=== PATIENT | female | born 1980 | race Caucasian/White ===

== ENCOUNTER 2020-11-29 14:11 | Emergency (ER) | payer OTHER, SELFPAY ==
[2020-11-29 14:14] VITALS: BP 138/89; PULSE 79; RESP 18; TEMP 36.4; O2SAT 97
[2020-11-29] MEDS: LORazepam (*CRX) 1 MG TABLET PO (14:35)
[2020-11-29 15:01] LABS: Basophils Absolute Auto 0.1 K/mm3 (0.0-0.1); Eosinophils Absolute Auto 0.1 K/mm3 (0-0.3); Eosinophils Percent Auto 2.3 % (0-4.4); Hemoglobin 13.5 g/dL (12.0-15.0); Immature Granulocyte Absolute 0.02 K/mm3 (0.00-0.031); Immature Granulocyte Percent A 0.3 % (0-0.5); Lymphocytes Absolute Auto 1.38 K/mm3 (0.9-3.2); Mean Corpuscular HGB Conc 33.8 g/dl (32-36); Mean Corpuscular Hemoglobin 30.8 pg (26-34); Mean Corpuscular Volume 91.1 fl (80-100); Monocytes Absolute Auto 0.5 K/mm3 (0.1-0.6); Monocytes Percent Auto 8.9 % (2.6-8.5); Neutrophils Absolute Auto 3.7 K/mm3 (1.3-6.7); Neutrophils Percent Auto 63.5 % (45.5-73.1); Platelet Count Result 282 k/mm3 (150-375); Red Blood Count 4.39 M/mm3 (4.2-5.4); Red Cell Distribution Width 13.3 % (11.5-14.5); White Blood Count 5.8 K/mm3 (4.5-10.0)
[2020-11-29 15:12] LABS: Anion Gap 6 mmol/L (8-16); Blood Urea Nitrogen 8 mg/dL (7-17); Calcium 8.6 mg/dL (8.4-10.2); Carbon Dioxide 25 mmol/L (22-30); Chloride 107 mmol/L (98-107); Estimated CRCL calculation 102 ml/min; Estimated Glomerular Filt Rate > 60; Glucose 101 mg/dL (65-105); Potassium 4.1 mmol/L (3.4-5.0); Sodium 138 mmol/L (137-145)
[2020-11-29 15:14] LABS: Add Urine Microscopic? YES; Appearance Urine Cloudy (Clear); Bacteria Urine Trace /hpf; Bilirubin Urine Negative (Negative); Blood Urine Negative (Negative); Color Urine Yellow (Yellow); Glucose Urine UA Negative (Negative); Ketones Urine 2+ mg/dL (Negative); Leukocyte Esterase Ur Negative LEU/UL (Negative); Mucus Urine Heavy /lpf; Nitrate Urine Negative (Negative); Protein Urine 2+ mg/dL (Negative); RBC Urine 21-50 /hpf (0-2); Specific Grav Ur 1.027 (1.001-1.035); Squamous Epithelial Cell Urine Many /hpf (Few); Urobilinogen Urine Negative mg/dL (<2.0); WBC Urine 0-3 /hpf
[2020-11-29 15:49] LABS: Barbiturate Screen Urine Negative (Negative); Benzodiazepines Screen Urine Negative (Negative)
[2020-11-29 15:53] LABS: Amphetamine Screen Urine Negative (Negative); Cannabinoid Screen Urine Positive (Negative); Cocaine Screen Urine Negative (Negative); Methadone Screen Urine Negative (Negative); Opiate Screen Urine Negative (Negative); Phencyclidine Screen Urine Negative (Negative)
--- NOTE | 2020-11-29 16:00 | ED.ANXIETY ---
HPI - Anxiety General Chief Complaint: Anxiety Stated Complaint: I cant feel my legs or arms . Chest pain Time Seen by Provider: 11/29/20 14:18 Source: patient Mode of arrival: ambulatory Limitations: no limitations History of Present Illness HPI narrative: 39-year-old with a history of anxiety and depression here with complaints of lower extremity numbness and tingling sensation since this morning. Patient states that she is on Lamictal and Klonopin which she has not taken this morning was at work started having the symptoms again her friend gave her half a tablet of Xanax which eased her for little bit however she still continues to feel tingly all over. She denies any headache or chest pain. complaint: anxiety Severity: moderate Quality: constant Place: home History of similar episodes: Yes Provoking factors: none known Relieving factors: nothing Exacerbating factors: nothing Associated symptoms: denies other symptoms Related Data Allergies Allergy/AdvReac Type Severity Reaction Status Date / Time No Known Allergies Allergy Verified 11/29/20 14:17 Review of Systems Review of Systems: All systems reviewed & are unremarkable except as noted in HPI and below Constitutional: Constitutional: Reports no additional constitutional complaints ENT: Reports system reviewed and no additional complaints, except as documented Cardiovascular: Cardiovascular: Reports no additional cardiovascular complaints Respiratory: Respiratory: Reports no additional respiratory complaints Gastrointestinal: Gastrointestinal: Reports no additional gastrointestinal complaints Musculoskeletal: Musculoskeletal: Reports no additional musculoskeletal complaints Neurologic: Reports system reviewed and no additional complaints, except as documented PMFSH Social History Social History Smoking status: Never smoker Alcohol intake: never Exam Narrative: Exam Narrative: GENERAL: Well-appearing, well-nourished, and in no acute distress. HEAD: Normocephalic, atraumatic. EYES: PERRLA and EOMI. NECK: Supple. CHEST: Clear to auscultation. No respiratory distress. HEART: Regular rate and rhythm. No murmur heard. Normal peripheral pulses. ABDOMEN: Soft, nontender, nondistended, normal active bowel sounds. EXTREMITIES: Normal range of motion. No edema. SKIN: Warm, dry, no rash. NEURO: No focal deficits. Alert and oriented x3. PSYCH: Normal mood and affect. Course Course Emergency Course: Patient did receive 1 mg of Ativan while she was here in the ER. I discussed labs including urinalysis patient states that she has IUD occasionally she has mild intermittent spotting which explains blood in the urine I advised her to follow-up with her primary doctor and continue home medication. Vital Signs Vital signs: Vital Signs Temperature 36.4 C L 11/29/20 14:14 Pulse Rate 79 11/29/20 14:14 Respiratory Rate 18 11/29/20 14:14 Blood Pressure 138/89 11/29/20 14:14 Pulse Oximetry 97 11/29/20 14:14 Temperature 36.4 C L 11/29/20 14:14 Pulse Rate 79 11/29/20 14:14 Respiratory Rate 18 11/29/20 14:14 Blood Pressure 138/89 11/29/20 14:14 Pulse Oximetry 97 11/29/20 14:14 MDM - Anxiety MDM Narrative Medical decision making narrative: Given history of anxiety I will give her a milligram of Ativan p.o. meanwhile do CBC and chemistry . Lab Data Result diagrams: 11/29/20 14:52 11/29/20 14:53 Labs: Lab Results 11/29/20 11/29/20 11/29/20 Range/Units 14:52 14:53 14:58 WBC 5.8 (4.5-10.0) K/mm3 RBC 4.39 (4.2-5.4) M/mm3 Hgb 13.5 (12.0-15.0) g/dL Hct 40.0 (37.0-47.0) % MCV 91.1 (80-100) fl MCH 30.8 (26-34) pg MCHC 33.8 (32-36) g/dl RDW 13.3 (11.5-14.5) % Plt Count 282 (150-375) k/mm3 MPV 10.0 (7.4-10.4) fl Immature Gran % (Auto) 0.3 (0-0.5) % Neut % (Auto) 63.5 (45.5-73.1) % Lymp
[2020-11-29 16:16] VITALS: BP 135/70; PULSE 80; RESP 12; O2SAT 99
== END 2020-11-29 16:17 | disposition home or self-care (01) ==
PROVIDERS: Emergency Provider Family Medicine
DX: F41.9 Anxiety disorder, unspecified (principal); F32.9 Major depressive disorder, single episode, unspecified; Z97.5 Presence of (intrauterine) contraceptive device
CPT/HCPCS: 36415; 80048; 80307; 81001; 85025; 99283; A9270

== ENCOUNTER 2021-09-15 15:04 | Outpatient (CLI) | payer OTHER, SELFPAY ==
--- NOTE | ~2021-09-15 | US_ITS ---
EXAMINATION: US soft tissue head and neck DATE: 09/15/2021 15:30 INDICATION: Swelling/lump at the posterior base of the neck TECHNIQUE: Multiple grayscale and Doppler ultrasound images of the region of concern at the posterior base of the neck were obtained. COMPARISON: None FINDINGS: Shadowing spinous processes can be seen underlying the normal-appearing subcutaneous fat at the regio n of concern. No abnormal masses or fluid collections identified. IMPRESSION: 1. No abnormal masses or fluid collections identified at the region of concern at the posterior base of the neck. Reviewed, dictated and finalized at location A. 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
== END 2021-09-15 15:05 | disposition home or self-care (01) ==
LOC: ANHIMG 15:08
DX: R22.1 Localized swelling, mass and lump, neck (principal)
CPT/HCPCS: 76536

== ENCOUNTER 2021-10-29 00:12 | Emergency (ER) | payer OTHER, SELFPAY ==
--- NOTE | ~2021-10-29 | XR_ITS ---
EXAMINATION: XR chest 1V portable DATE: 10/29/2021 00:24 INDICATION: Chest pain TECHNIQUE: frontal view of the chest was obtained. COMPARISON: Chest radiograph dated 05/17/2018 FINDINGS: The lungs remain clear with no focal airspace opacities, pulmonary edema, pleural effusion or pneumot horax. The cardiomediastinal silhouette is normal. Visualized bones and soft tissues are unremarkable . IMPRESSION: 1. No acute cardiopulmonary disease. Reviewed, dictated and finalized at location A. 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
[2021-10-29 00:10] VITALS: BP 121/69; PULSE 67; RESP 15; TEMP 36.7; O2SAT 99
--- NOTE | 2021-10-29 00:14 | ECG_ITS ---
Measurements Intervals [place] Rate: 62 P: 2 GA: 137 QRS: 52 QRSD: 102 T: 50 QT: 396 QTc: 404 Interpretive Statements SINUS RHYTHM INCOMPLETE RIGHT BUNDLE BRANCH BLOCK BASELINE ARTIFACT- I, II, III, AVR, AVL, AVF, V1, V3-V6 BORDERLINE ECG Electronically Signed On 10-29-2021 6:27:23 HOSTLER HELPER by Mani Schilling D.O.
[2021-10-29 00:16] VITALS: PULSE 64
[2021-10-29 00:31] LABS: Basophils Absolute Auto 0.1 K/mm3 (0.0-0.1); Basophils Percent Auto 0.8 % (0.2-1.2); Eosinophils Absolute Auto 0.2 K/mm3 (0-0.3); Eosinophils Percent Auto 2.3 % (0-4.4); Hematocrit 39.9 % (37.0-47.0); Hemoglobin 13.1 g/dL (12.0-15.0); Immature Granulocyte Absolute 0.02 K/mm3 (0.00-0.031); Immature Granulocyte Percent A 0.2 % (0-0.5); Lymphocytes Absolute Auto 2.81 K/mm3 (0.9-3.2); Lymphocytes Percent Auto 26.5 % (18.3-44.2); Mean Corpuscular HGB Conc 32.8 g/dl (32-36); Mean Corpuscular Hemoglobin 31.2 pg (26-34); Mean Platelet Volume 10.7 fl (7.4-10.4); Monocytes Absolute Auto 0.7 K/mm3 (0.1-0.6); Neutrophils Absolute Auto 6.7 K/mm3 (1.3-6.7); Neutrophils Percent Auto 63.2 % (45.5-73.1); Platelet Count Result 251 k/mm3 (150-375); Red Cell Distribution Width 12.9 % (11.5-14.5); White Blood Count 10.6 K/mm3 (4.5-10.0)
[2021-10-29 00:41] LABS: INR 0.9
[2021-10-29 00:42] LABS: Alanine Aminotransferase 12 U/L (4-35); Albumin Level 4.1 g/dL (3.5-5.1); Alkaline Phosphatase 54 U/L (38-126); Anion Gap 5 mmol/L (8-16); Aspartate Amino Transferase 20 U/L (14-36); Bilirubin,Total 0.2 mg/dL (0.2-1.3); Blood Urea Nitrogen 10 mg/dL (7-17); Calcium 8.7 mg/dL (8.4-10.2); Carbon Dioxide 24 mmol/L (22-30); Chloride 109 mmol/L (98-107); Estimated CRCL calculation 115 ml/min; Estimated Glomerular Filt Rate > 60; Glucose 153 mg/dL (65-110); Sodium 138 mmol/L (137-145)
[2021-10-29 00:53] LABS: Troponin I < 0.012 ng/mL (0.000-0.034)
--- NOTE | 2021-10-29 01:41 | ED.CHESTPAIN ---
HPI - Chest Pain General Chief Complaint: Chest Pain Stated Complaint: chest pain Time Seen by Provider: 10/29/21 00:14 Source: patient Mode of arrival: EMS Limitations: no limitations History of Present Illness HPI narrative: 40-year-old with a history of back problems here with complaints of midsternal chest pain radiating into her back. Patient states the pain woke her up from deep sleep. She states of her past few days she has been having back pain and she has been taking baclofen. She denied any shortness of breath, nausea or vomiting. Patient denies any gallbladder problems. MD complaint: chest pain Timing of current episode: now resolved Prior episodes: No Onset: during rest Pain location: epigastric Pain radiation: back Severity: moderate Quality: aching Relieving factors: nothing Exacerbating factors: nothing Related Data Home Medications Medication Instructions Recorded Confirmed clonazepam 0.5 mg PO TID 10/06/19 10/06/19 lamotrigine 300 mg PO DAILY 10/06/19 10/06/19 Allergies Allergy/AdvReac Type Severity Reaction Status Date / Time codeine Allergy Nausea Verified 10/29/21 00:15 Review of Systems Review of Systems: All systems reviewed & are unremarkable except as noted in HPI and below Constitutional: Constitutional: Reports no additional constitutional complaints Eyes: Eyes: Reports no additional eye complaints ENT: Reports system reviewed and no additional complaints, except as documented Cardiovascular: Cardiovascular: Reports no additional cardiovascular complaints Respiratory: Respiratory: Reports no additional respiratory complaints Gastrointestinal: Gastrointestinal: Reports no additional gastrointestinal complaints Musculoskeletal: Musculoskeletal: Reports no additional musculoskeletal complaints Neurologic: Reports system reviewed and no additional complaints, except as documented PMFSH Social History Social History Smoking status: Never smoker Second hand tobacco smoke exposure: Yes Alcohol intake: never Exam Narrative: GENERAL: Well-appearing, well-nourished, and in no acute distress. HEAD: Normocephalic, atraumatic. EYES: PERRLA and EOMI NECK: Supple. CHEST: Clear to auscultation. No respiratory distress. HEART: Regular rate and rhythm. No murmur heard. Normal peripheral pulses. ABDOMEN: Soft, nontender, nondistended, normal active bowel sounds. EXTREMITIES: Normal range of motion. No edema. SKIN: Warm, dry, no rash. NEURO: No focal deficits. Alert and oriented x3. PSYCH: Normal mood and affect. Course Course Emergency Course: Patient comfortably sitting on the stretcher in no discomfort talking with her mother she states that she is feeling great I did inform her about her EKG, chest x-ray and lab work. She feels comfortable going home. Vital Signs Vital signs: Vital Signs Temperature 36.7 C 10/29/21 00:10 Pulse Rate 67 10/29/21 00:10 Respiratory Rate 15 10/29/21 00:10 Blood Pressure 121/69 10/29/21 00:10 Pulse Oximetry 99 10/29/21 00:10 Temperature 36.7 C 10/29/21 00:10 Pulse Rate 64 10/29/21 00:16 Respiratory Rate 15 10/29/21 00:10 Blood Pressure 121/69 10/29/21 00:10 Pulse Oximetry 99 10/29/21 00:10 MDM - Chest Pain Lab Data Result diagrams: 10/29/21 00:18 10/29/21 00:18 Labs: Lab Results 10/29/21 10/29/21 10/29/21 Range/Units 00:18 00:18 00:18 WBC 10.6 H (4.5-10.0) K/mm3 RBC 4.20 (4.2-5.4) M/mm3 Hgb 13.1 (12.0-15.0) g/dL Hct 39.9 (37.0-47.0) % MCV 95.0 (80-100) fl MCH 31.2 (26-34) pg MCHC 32.8 (32-36) g/dl RDW 12.9 (11.5-14.5) % Plt Count 251 (150-375) k/mm3 MPV 10.7 H (7.4-10.4) fl Immature Gran % (Auto) 0.2 (0-0.5) % Neut % (Auto) 63.2 (45.5-73.1) % Lymph % (Auto) 26.5 (18.3-44.2) % [place] % (Auto) 7.0 (2.6-8.5) % Eos % (Auto) 2.3 (0-4.4)
[2021-10-29 02:13] VITALS: BP 117/62; PULSE 72; RESP 16; O2SAT 98
== END 2021-10-29 02:15 | disposition home or self-care (01) ==
PROVIDERS: Emergency Provider Family Medicine
DX: R07.89 Other chest pain (principal)
CPT/HCPCS: 36415; 71045; 80053; 84484; 85025; 85610; 93005; 99284

== ENCOUNTER 2022-02-16 19:45 | Emergency (ER) | payer OTHER, SELFPAY ==
[2022-02-16 19:51] VITALS: BP 111/73; PULSE 104; RESP 20; TEMP 36.7; O2SAT 98
--- NOTE | 2022-02-16 20:37 | PC.NURSE ---
Pt walks out aox3 when pt checked in she stated if the wait was too long she was going to go to a different hospital.
== END 2022-02-16 21:05 | disposition left against medical advice (07) ==
DX: Z53.21 Procedure and treatment not carried out due to patient leaving prior to being seen by health care provider (principal)
CPT/HCPCS: 99199

== ENCOUNTER 2022-02-17 13:57 | Emergency (ER) | payer OTHER, SELFPAY ==
[2022-02-17 14:09] VITALS: BP 128/67; PULSE 95; RESP 16; TEMP 36.9; O2SAT 100
--- NOTE | 2022-02-17 14:11 | PC.NURSE ---
pt upset that we dont have any beds open. when mother informed that she would have to wait outside until pt taken back to a room pt states lets go to [facility], they have more beds
== END 2022-02-17 14:11 | disposition left against medical advice (07) ==
DX: R51.9 Headache, unspecified (principal)
CPT/HCPCS: 99199

== ENCOUNTER 2022-04-16 17:49 | Outpatient (CLI) | payer OTHER, SELFPAY ==
--- NOTE | ~2022-04-16 | CT_ITS ---
EXAMINATION: CT abdomen pelvis wo con DATE: 04/16/2022 18:18 INDICATION: History of left-sided kidney stones. TECHNIQUE: Computed tomography (CT) of the abdomen and pelvis was performed without intravenous contr ast. The dose-length product was 218.51 mGy-cm. Automated exposure control and iterative reconstructi on technique were employed. COMPARISON: CT dated 03/27/2017. FINDINGS: Possible 1.8 cm right breast mass, image 1. Heart size normal. Lung bases unremarkable. No significant pleural or pericardial effusion. No significant vascular abnormality. No lymphadenopathy. There is an IUD in the uterus. Containing umbilical hernia. The liver, spleen, pancreas, adrenal glands are unremarkable. There are punctate nonobstructing bilat eral renal stones. There are pelvic phleboliths. Bladder is decompressed. No hydronephrosis. Gallblad casey is present. Nonobstructive bowel pattern. No abnormal pelvic masses or fluid collections. No free air or free fluid. IMPRESSION: 1. Punctate nonobstructing bilateral nephrolithiasis. 2: Possible right breast mass measuring 1.8 cm, partially visualized on image 1. Correlation with josi gnostic bilateral mammogram and possible additional ultrasound recommended. Reviewed, dictated and finalized at location A. IMPRESSION: 1. Punctate nonobstructing bilateral nephrolithiasis. 2: Possible right breast mass measuring 1.8 cm, partially visualized on image 1 . Correlation with diagnostic bilateral mammogram and possible additional ultra sound recommended.
== END 2022-04-16 17:50 | disposition home or self-care (01) ==
DX: N20.0 Calculus of kidney (principal); R92.8 Other abnormal and inconclusive findings on diagnostic imaging of breast
CPT/HCPCS: 74176

== ENCOUNTER 2022-05-20 12:56 | Outpatient (CLI) | payer OTHER, SELFPAY ==
--- NOTE | ~2022-05-20 | MM_ITS ---
EXAMINATION: MM diagnostic abiodun BI w estrella HISTORY: Possible right breast mass on CT TECHNIQUE: Craniocaudal, mediolateral, and mediolateral oblique 3-D tomosynthesis images of the breas ts were performed and synthetic 2-D images were generated. CAD analysis was submitted and interpreted . COMPARISON: 10/18/2017 BREAST PARENCHYMAL COMPOSITION: The breasts are heterogeneously dense, which may obscure small masses . FINDINGS: There is no suspicious mass, calcification, or architectural distortion in either breast t o suggest malignancy. There has been no suspicious interval change. No mammographic correlate is yanely ntified for the right breast mass questioned on CT. IMPRESSION: 1. No mammographic evidence of malignancy. 2. Recommend routine screening mammography in one year. BI-RADS Category 1: Negative Reviewed, dictated and finalized at location A.
== END 2022-05-20 12:57 | disposition home or self-care (01) ==
PROVIDERS: Visit Provider Obstetrics & Gynecology
DX: N63.10 Unspecified lump in the right breast, unspecified quadrant (principal)
CPT/HCPCS: 77061; 77062; 77065; 77066; G0279

== ENCOUNTER 2022-06-10 15:49 | Emergency (ER) | payer OTHER, SELFPAY ==
[2022-06-10] VITALS (15 sets, daily range): BP systolic 123–142; BP diastolic 80–118; PULSE 84–119; RESP 12–26; O2SAT 90–99
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
[2022-06-10] MEDS: LORazepam (*CRX) 0.5 MG TABLET PO (16:54)
--- NOTE | 2022-06-10 17:03 | PC.NURSE ---
pt. showered off in decon shower and pt had 1L NS bilat rinse through lissy lens in each eye.
== END 2022-06-10 17:20 | disposition home or self-care (01) ==
PROVIDERS: Emergency Provider Emergency Medicine
DX: T52.0X Toxic effects of petroleum products (principal); H57.13 Ocular pain, bilateral
CPT/HCPCS: 99283; A9270; J7030

== ENCOUNTER 2023-08-10 14:42 | Outpatient (CLI) | payer OTHER, SELFPAY ==
--- NOTE | 2023-08-10 | ECG_ITS ---
Measurements Intervals [place] Rate: 63 P: 5 MN: 149 QRS: 62 QRSD: 101 T: 45 QT: 371 QTc: 382 Interpretive Statements SINUS RHYTHM INCOMPLETE RIGHT BUNDLE BRANCH BLOCK BORDERLINE ECG COMPARED TO ECG 10/29/2021 00:17:33 NO SIGNIFICANT CHANGES Electronically Signed On 08-10-2023 20:07:05 CHIEF CHEMIST by Mani Schilling D.O.
== END 2023-08-10 14:43 | disposition home or self-care (01) ==
LOC: ANHCARD 14:56
PROVIDERS: PCP Physician Assistant; Visit Provider Physician Assistant
DX: Z01.818 Encounter for other preprocedural examination (principal); I45.10 Unspecified right bundle-branch block
CPT/HCPCS: 93005

== ENCOUNTER 2024-07-03 14:00 | Outpatient (CLI) | payer OTHER, SELFPAY ==
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
== END 2024-07-03 14:01 | disposition home or self-care (01) ==
LOC: ANHIMG 14:10
PROVIDERS: PCP Physician Assistant; Visit Provider Physician Assistant
DX: M48.54XA Collapsed vertebra, not elsewhere classified, thoracic region, initial encounter for fracture (principal); T14.90XA Injury, unspecified, initial encounter
CPT/HCPCS: 71046; 72070; 73660

== ENCOUNTER 2024-10-15 10:30 | Outpatient (CLI) | payer OTHER, SELFPAY ==
--- NOTE | ~2024-10-15 | MM_ITS ---
EXAMINATION: MM screening abiodun BI w estrella HISTORY: Screening TECHNIQUE: Craniocaudal and mediolateral oblique 3-D tomosynthesis images were obtained and synthetic 2-D images were generated. CAD analysis was submitted and interpreted. COMPARISON: Comparison to multiple prior studies sequentially, with oldest reviewed study dated 10/18. BREAST PARENCHYMAL COMPOSITION: Dense: The breasts are heterogeneously dense, which may obscure small masses FINDINGS: There is no evidence of suspicious mass, calcification, or architectural distortion to sugg est malignancy in either breast. There has been no suspicious interval change. IMPRESSION: 1. No mammographic evidence of malignancy. 2. Recommend routine screening mammography in one year. BI-RADS Category 1: Negative Reviewed, dictated and finalized at location A. 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
== END 2024-10-15 10:31 | disposition home or self-care (01) ==
LOC: ANHIMG 10:32
PROVIDERS: PCP Physician Assistant; Visit Provider Obstetrics & Gynecology
DX: Z12.31 Encounter for screening mammogram for malignant neoplasm of breast (principal)
CPT/HCPCS: 77063; 77067

== ENCOUNTER 2025-08-08 12:51 | Outpatient (CLI) | payer OTHER, SELFPAY ==
--- NOTE | ~2025-08-08 | XR_ITS ---
EXAMINATION: XR hand RT 2V, 08/08/2025 13:00 IRRIGATION INSTALLATION SPECIALIST HISTORY: BILAT NON TRAUMA PAIN TO ALL FINGERS COMPARISON: No comparisons available. Findings: No acute fracture or malalignment. Moderate degenerative changes of the fifth proximal interphalangeal joint Soft tissues unremarkable. Impression: No acute fracture or malalignment. Reviewed, dictated and finalized at location P. GATION INSTALLATION SPECIALIST Impression: No acute fracture or malalignment.
--- NOTE | ~2025-08-08 | XR_ITS ---
EXAMINATION: XR hand LT 2V, 08/08/2025 13:00 CIVIL MANAGER HISTORY: BILATERAL NO TRAUMA PAIN TO ALL FINGERS FOR SEVERAL MONTHS COMPARISON: No comparisons available. Findings: No acute fracture or malalignment. Moderate degenerative changes of the fifth proximal interphalangeal joint Soft tissues unremarkable. Impression: No acute fracture or malalignment. Reviewed, dictated and finalized at location P. L MANAGER Impression: No acute fracture or malalignment.
--- OUTSIDE RECORDS SUMMARY | 2025-08-08 15:21 | XMS_ITS | Clinical Summary ---
Author Organization [facility] Address [facility] [place] [address] Care Team Providers Care Chair Name Role Phone Nilda Choe PA-C Primary Care Provider [phone] Allergies Active Allergy Reactions Criticality Noted Date Comments Codeine Nausea and Vomiting 11/07/2012 Medications clonazePAM 0.5 MG tablet Take 1 tablet by mouth 3 (three) times daily as needed. 07/12/2019 Active lamotrigine 100 MG tablet Take 300 mg by mouth daily. 3 06/21/2019 Active zolpidem 10 MG tablet Take 1 tablet by mouth nightly as needed. 07/12/2019 Active ibuprofen 800 MG tabletIndicatio ns:Headache Take 1 tablet (800 mg total) by mouth 3 (three) times daily as needed for Pain. 60 tablet 09/17/2019 Active baclofen 20 MG tabletIndicatio ns:prn pt not sure of mg Take 1 tablet (20 mg total) by mouth daily. Indications: prn pt not sure of mg 30 tablet 2 02/05/2020 Active traZODone 100 MG tablet Take 100 mg by mouth nightly as needed. 12/29/2021 Active valACYclovir 1 g tablet Take 1,000 mg by mouth daily. 01/14/2022 Active butalbital-acet aminophen-caffe ine 50-300-40 MG capsule Take 1 capsule by mouth every 6 (six) hours as needed for Headaches. 5 capsule 02/22/2022 Active HYDROcodone-tanna taminophen 5-325 MG tabletIndicatio ns:Acute Pain < 3 Day Supply Take 1 tablet by mouth every 6 (six) hours as needed for Pain. Indications: Acute Pain < 3 Day Supply 5 tablet 02/22/2022 Active cefdinir 300 MG Cap capsule Take 1 capsule (300 mg total) by mouth 2 (two) times daily. Start evening dose on 02/22/22 15 capsule 02/22/2022 Active Active Problems Problem Noted Date Diagnosed Date Ureteral stone 02/18/2022 Pyelonephritis 02/17/2022 Epidermal inclusion cyst 10/15/2021 Neoplasm of uncertain behavior of skin 2 Multiple benign nevi of uppe r extremity, lower extremity, and trunk 01/31/2020 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 Acrochordon 01/31/2020 Seborrheic keratosis 01/31/2020 Anxiety 01/10/2020 Actinic keratosis 11/15/2019 Atypical mole 11/15/2019 BMI 28.0-28.9,adult 08/07/2019 Shoulder pain, bilateral 07/19/2019 Numbness and tingling 07/19/2019 Pain in both hands 07/19/2019 Bipolar 1 disorder 10/20/2012 Viral hepatitis C 10/20/2012 Immunizations Immunization Administration Dates Next Due Fluzone Adult - >Age 3 (Pref illed Syringe) 01/08/2020(Deferred: Other - not sure if she wants it today) Family History Medical History Relation Comments Diabetes Maternal Aunt Diabetes Maternal Grandmother None Mother skin cancer Mother Relation Status Comments Father Alive Maternal Aunt Maternal Grandmother Mother Alive Social History Tobacco Use Types Packs/Day Years Used Date Smoking Tobacco: Never Smokeless Tobacco: Never Tobacco Cessation:Counseling Given: No Alcohol Use Standard Drinks/Week Comments No 0 (1 standard drink = 0.6 oz pur e alcohol) AUDIT-C Answer Date Recorded Frequency of Alcohol Consumption Never 07/19/2019 Average Number of Drinks Not on file 019 Frequency of Binge Drinking Not on file 06/21 PHQ-2 Answer Date Recorded PHQ-2 Score 3 11/15/2019 Education Answer Date Recorded What is the highest level of school you have completed or the highest degree you have received? Some college, no degree 07/19/2019 Comments No Sex and Gender Information Value Date Recorded Sex Assigned at Female 02/18/2022 3:07 AM CDT Legal Sex Female 8:16 PM CDT Gender Identity Female 02/18/2022 3:07 AM CDT Sexual Orientation Straight 02/18/2022 3: 07 AM CDT Last Filed Vital Signs Vital Sign Reading Time Taken Comments Blood Pressure 125/78 02/22/2022 8:57 AM CDT Pulse 63 02/22/2022 8:57 AM CDT Temperature 36.8 C (98.2 F) 02/22/2022 8:57 AM CDT Respiratory Rate 18 02/22/2022 8:57 AM CDT Oxygen Saturation 98% 02/22/2022 8:57 AM CDT Inhaled Oxygen Concentration - - Weight 89.5 kg (197 lb 5 oz) 02/22/2022 7:56 AM CDT Height 170.2 cm (5' 7) 02/22/2022 7:56 AM CDT Body Mass Index 30.9 02/22/2022 7:56 AM CDT Plan of Treatment Health Maintenance Due Date Last Done Comments Cervical Cancer Screening Pa p Smear (Age 30 to 64) Every 3 Years 1982 Annual Physical 1985 DTaP, Tdap and Td Vaccines ( 1 - Tdap) 2001 Hepatitis A Vaccines (1 of 2 - Risk 2-dose series) 2001 Hepatitis B Vaccines (1 of 3 - 19+ 3-dose series) 2001 Cervical Cancer Screening Pa p with HPV Testing (Age 30 to 64) Every 5 Years 2012 Cervical Cancer Screening wi th HPV 2012 Mammogram Screening 2022 COVID-19 Vaccine (3 - 2024-2 6 season) 2025 08/04/2021, 11/27/2020 Influenza Adult (#1) 2025 08/04/2021, 06/15/2016 HPV Vaccines Completed 03/13/2008, 09/15/2007, 07/17/2007 Hepatitis C Completed 10/20/2012 Meningococcal B Vaccine Aged Out No l onger eligible based on patient's age to complete this topic Meningococcal Vaccine Aged Out No maranda jerry eligible based on patient's age to complete this topic Pneumococcal Vaccine: Pediatrics (0 to 5 Years) and At-Risk Patients (6 to 49 Years) Aged Out No longer eligible b ased on patient's age to complete this topic RSV Immunizations Under 20 Months Aged Out No longer eligible b ased on patient's age to complete this topic Goals Goal Patient Goal Type Associated Problems Recent Progress Patient-Stated? Author Safety - demonstrates understanding of home safety measures General No Carol Hyatt RN Medical Devices Implanted Type Area Building Official Device Identifier Shelf Expiration Date Model / Serial / Lot Stent Ureteral [place] [employer] Contour 6fr X 26cm - [id number] Implanted:Qty : 1 on 02/18/2022 by Malachi Torres MD at [facility] Stent Left: Ureter [employer] [id number] 12/10/2024 [id number] Insurance [facility] Advance Directives * Full Code (Latest Code Status on File) Date Activated Date Inactivated Comments 02/18/2022 2:49 AM 02/22/2022 2:28 PM Care Teams Chair Relationship Specialty Start Date End Date Nilda Choe PA-C PCP - General PHYSICIAN FISCAL ECONOMIST 02/19/22
--- OUTSIDE RECORDS SUMMARY | 2025-08-08 15:21 | XMS_ITS | Encounter Summary ---
Author Organization [facility] Address [address] [facility] [place] [address] Care Team Providers Care Dipper Machine Operator Name Role Phone Nilda Choe PA-C Primary Care Provider Encounter Details Date Type Department Care Team (Late st Contact Info) Description 06/25/2025 Results Follow-Up [facility] - General Dermatology [address] [place] [address] Eddy Guzman MD [address] [place] [address] Social History Tobacco Use Types Packs/Day Years Used Date Smoking Tobacco: Never Smokeless Tobacco: Never Alcohol Use Standard Drinks/Week Comments No 0 (1 standard drink = 0.6 oz pur e alcohol) Comments No Sex and Gender Information Value Date Recorded Sex Assigned at Not on file Legal Sex Female 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 documented in this encounter Plan of Treatment Upcoming Encounters Date Type Department Care Team (Late Contact Info) Description 08/27/2025 3:00 PM FIREFIGHTING EQUIPMENT SPECIALIST Procedure visit [facility] - General Dermatology [address], [address] [place] [address] Eddy Guzman MD [address] [facility] [address] [place] [address] documented as of this encounter Visit Diagnoses Not on filedocumented in this encounter Care Teams Dipper Machine Operator Relationship Specialty Start Date End Date Nilda Choe PA-C [address] [place] [id number] PCP - General Nurse Practitioner Primary Care 06/20/25 documented as of this encounter
--- OUTSIDE RECORDS SUMMARY | 2025-08-08 15:21 | XMS_ITS | Encounter Summary ---
Author Organization [facility] Address [address] [facility] [place] [address] Care Team Providers Care Freight Hustler Name Role Phone Nilda Choe PA-C Primary Care Provider [phone] Encounter Details Date Type Department Care Team (Late st Contact Info) Description 07/25/2025 Results Follow-Up [facility] - General Dermatology [address], [address] [place] [address] Eddy Guzman MD [address] [place] [address] Social History Tobacco Use Types Packs/Day Years Used Date Smoking Tobacco: Never Smokeless Tobacco: Never Alcohol Use Standard Drinks/Week Comments No 0 (1 standard drink = 0.6 oz pur e alcohol) Comments No Sex and Gender Information Value Date Recorded Sex Assigned at Not on file Legal Sex Female 3:00 PM TOOTH CUTTER Gender Identity Not on file Sexual Orientation Not on file documented as of this encounter Progress Notes * Eddy Guzman MD - 07/25/2025 2:30 PM CST Result communicated via [employer] message. H CUTTER documented in this encounter Plan of Treatment Upcoming Encounters Date Type Department Care Team (Late st Contact Info) Description 08/27/2025 3:00 PM TOOTH CUTTER Procedure visit [facility] - General Dermatology [address], [address] [place] [address] Eddy Guzman MD [address] [facility] [address] [place] [address] documented as of this encounter Visit Diagnoses Not on filedocumented in this encounter Care Teams Freight Hustler Relationship Specialty Start Date End Date Nilda Choe PA-C [address] [place] [address] PCP - General Nurse Practitioner Primary Care 06/20/25 documented as of this encounter
--- OUTSIDE RECORDS SUMMARY | 2025-08-08 15:21 | XMS_ITS | Clinical Summary ---
Author Organization [facility] Address [address] [place] [address] Care Team Providers Care Substance Abuse Prevention Coordinator Name Role Phone Nilda Choe Primary Care Provider [phone] Allergies No known active allergies Medications lamotrigine (LAMICTAL ORAL) Take by mouth Active HYDROcodone-ac etaminophen (NORCO) 5-325 mg per tabletIndicati ons:Pain Take 1 tablet by mouth every 6 (six) hours as needed for pain 25 tablet 4 Active Additional Information Patient not taking.Reported on 04/20/2024 cyclobenzaprin e (FLEXERIL) 5 mg tablet Take 1 tablet (5 mg total) by mouth 3 (three) times a day as needed for muscle spasms 15 tablet 4 Active valACYclovir (VALTREX) 1 gram tablet Take 1 tablet (1,000 mg total) by mouth daily Active baclofen (LIORESAL) 10 mg tablet baclofen 10 mg tablet TAKE 1 TABLET BY MOUTH THREE TIMES DAILY NEEDED Active clonazePAM (KlonoPIN) 1 mg tablet Take 1 tablet (1 mg total) by mouth 3 (three) times a day as needed 4 Active ibuprofen (ADVIL,MOTRIN) 800 mg tablet TAKE 1 TABLET BY MOUTH EVERY 6 TO 8 HOURS WITH FOOD NEEDED Active zolpidem (AMBIEN) 10 mg tablet TAKE 1 TABLET BY MOUTH EVERY DAY FOR 20 DAYS NEEDED Active terconazole (TERAZOL 3) 0.8 % vaginal cream INSERT 1 APPLICATORFUL VAGINALLY EVERY DAY Active fluconazole (DIFLUCAN) 150 mg tablet Take 1 tablet (150 mg total) by mouth daily Active meclizine (ANTIVERT) 25 mg tablet Take 1 tablet (25 mg total) by mouth 3 (three) times a day as needed for dizziness 30 tablet Active Active Problems Problem Noted Date Diagnosed Date Bipolar 1 disorder 04/20/2024 Immunizations Immunization Administration Dates Next Due Tdap 04/19/2022 Social History Tobacco Use Types Packs/Day Years Used Date Smoking Tobacco: Never Tobacco Cessation:Counseling Given: Not Answered Personal Safety Answer Date Recorded Have you ever been in or are you currently in a harmful physical or emotional relationship or is someone making you feel afraid or unsafe? 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 Gender Identity Not on file Sexual Orientation Not on file Last Filed Vital Signs Vital Sign Reading Time Taken Comments Blood Pressure 107/56 03/27/2025 2:00 AM CDT Pulse 64 03/27/2025 2:00 AM CDT Temperature 36.7 C (98.1 F) 03/26/2025 10:42 PM CDT Respiratory Rate 18 03/27/2025 2:00 AM CDT Oxygen Saturation 97% 03/27/2025 2:00 AM CDT Inhaled Oxygen Concentration - - Weight 80.1 kg (176 lb 9.4 oz) 06/04/2024 10:15 PM CDT Height 167 cm (5' 5.75) 06/04/2024 10:15 PM CDT Body Mass Index 28.72 06/04/2024 10:15 PM CDT Plan of Treatment Health Maintenance Due Date Last Done Comments Breast Cancer Screening-Mammogram 1982 Cervical Cancer Screening 1982 Depression Screening 1982 Hepatitis C Screening 1982 Varicella Vaccines (1 of 2 - 13+ 2-dose series) 12/14/1995 Hepatitis B Screening 2000 Regular Well Visit/Exam 18-64 2000 Covid-19 Vaccine ( - 2024-2 6 season) 2025 08/04/2021, 11/27/2020 Influenza Vaccine (#1) 2025 , 08/03/2021, 06/15/2016 DTaP/Tdap/Td Vaccine (2 - Td or Tdap) 04/19/2032 04/19/2022 HPV Vaccines Completed 03/13/2008, 09/15/2007, 07/17/2007 Pneumococcal vaccine <65 Aged Out No longer eligible based on patient's age to complete this topic Insurance Care Teams Substance Abuse Prevention Coordinator Relationship Specialty Start Date End Date Nilda Choe PA [address] [place] [id number] PCP - General Physician Beater Worker Helper 03/27/25
--- OUTSIDE RECORDS SUMMARY | 2025-08-08 15:21 | XMS_ITS | Encounter Summary ---
Author Organization [facility] Address [address] [place] [address] Care Team Providers Care Hot Wire Glass Tube Cutter Name Role Phone Nilda Choe PA-C Primary Care Provider Reason for Visit * Reason Onset Date Comments Appointment 04/18/2025 Encounter Details Date Type Department Care Team (Late Contact Info) Description 04/18/2025 Telephone [facility] - Dermatology [address] [place] [address] [place] [id number] Eddy Guzman MD [address] [place] [address] [place] [address] Appointment Social History Tobacco Use Types Packs/Day Years Used Date Smoking Tobacco: Never Smokeless Tobacco: Never Alcohol Use Standard Drinks/Week Comments No 0 (1 standard drink = 0.6 oz pur e alcohol) Comments No Sex and Gender Information Value Date Recorded Sex Assigned at Not on file Legal Sex Female 3:00 PM COPY HOLDER Gender Identity Not on file Sexual Orientation Not on file documented as of this encounter Miscellaneous Notes * Telephone Encounter - Maria Isabel William - 04/18/2025 2:21 PM CDT Pt called stating she needs to be seen for a fbse and bumps on the lips of her vagina. documented in this encounter Plan of Treatment Upcoming Encounters Date Type Department Care Team (Late Contact Info) Description 08/27/2025 3:00 PM COPY HOLDER Procedure visit [facility] - General Dermatology [address] [place] [address] Eddy Guzman MD [address] [facility] [address] [place] [address] documented as of this encounter Visit Diagnoses Not on filedocumented in this encounter Care Teams Hot Wire Glass Tube Cutter Relationship Specialty Start Date End Date Nilda Choe PA-C [address] [place] [id number] PCP - General Nurse Practitioner Primary Care 06/20/25 documented as of this encounter
--- OUTSIDE RECORDS SUMMARY | 2025-08-08 15:21 | XMS_ITS | Clinical Summary ---
Author Organization [facility] Address [address] [place] [address] Care Team Providers Care Quality Assistant Name Role Phone Nilda Choe PA-C Primary Care Provider Source Comments [facility],non-owned Affiliates and Associated Physician Practices is amultiple site organization consisting of ambulatory clinics and hospital sitesin [place], [place], [place] and [place]. This disclosure is being madepursuant to the Care Everywhere program and may not contain all information available regarding this patient. Last updated 18.[facility] Allergies Active Allergy Reactions Criticality Noted Date Comments Codeine Nausea and/or Vomiting 11/07/2012 Medications * Be aware that medications may not be up to date on this document. Alwaysverify current medications with the patient. lamoTRIgine (LAMICTAL) 100 MG tablet Take 300 mg by mouth once daily 06/21/20 19 Active baclofen (LIORESAL) 20 MG tablet Take 20 mg by mouth once daily as needed Active acyclovir (ZOVIRAX) 400 MG tablet Take 400 mg by mouth 2 times daily 11/04/19 22 Active clonazePAM (KLONOPIN) 0.5 MG tablet Take 0.5 mg by mouth 3 times daily as needed 01/07/20 22 Active ibuprofen (MOTRIN) 800 MG tablet TAKE 1 TABLET BY MOUTH EVERY 6 TO 8 HOURS NEEDED 12/25/19 22 Active valACYclovir (Valtrex) 1 GM tablet valacyclovir 1 gram tablet TAKE 1 TABLET BY MOUTH EVERY DAY. 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 Epidermal inclusion cyst 10/15/2021 Multiple benign nevi of uppe r and lower extremities, and trunk 01/31/2020 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 Seborrheic keratosis 01/31/2020 Acrochordon 01/31/2020 Actinic keratosis 11/15/2019 Hepatitis C 10/20/2012 Bipolar 1 disorder 10/20/2012 Resolved Problems Problem Noted Date Diagnosed Date Resolved Date H/O one miscarriage 10/20/2012 11/07/19 13 Encounters Date Type Department Care Team Description 07/25/2025 Results Follow-Up [facility] - General Dermatology [facility] [address], [facility] [address] [place] [phone] Eddy Guzman MD 07/23/2025 2:20 PM DENTAL INSURANCE BILLER Procedure visit [facility] - General Dermatology [facility], [facility] [address] [place] [phone] Eddy Guzman MD Vulvar cysts 07/23/2025 Telephone [facility] - Centralized Scheduling [address] [place] [phone] Eddy Guzman MD Question 07/23/2025 Travel 06/25/2025 Results Follow-Up [facility] [address] [place] [address] [place] [phone] Eddy Guzman MD 06/20/2025 4:00 PM CDT Office Visit [facility] General Dermatology [facility], [address] [place] [phone] Eddy Guzman MD Actinic skin damage (Primary Dx); Lentigo; Neoplasm of uncertain behavior; Multiple benign melanocytic nevi of upper and lower extremities and trunk; Inflamed skin tag 06/20/2025 Travel from Last 3 Months Immunizations Immunization Administration Dates Next Due INFLUENZA VACCINE 08/03/2021 Family History Medical History Relation Name Comments None Known Brother None Known Father Cancer Maternal Aunt lung cancer Diabetes Maternal Grandfather Diabetes Maternal Grandmother None Known Maternal Uncle Cancer - Skin, Melanoma Mother None Known Other None Known Paternal Aunt None Known Paternal Grandfather None Known Paternal Grandmother None Known Paternal Uncle None Known Sister Arthritis Neg Hx Asthma Neg Hx Bleeding Disorders Neg Hx CVA Neg Hx Cancer - Breast Neg Hx Cancer - Other Neg Hx Cancer - Skin, Non Melanoma Neg Hx Clotting Disorder Neg Hx Eczema Neg Hx Genetic/Metabolic Disease Neg Hx Heart Disease Neg Hx Hemophilia Neg Hx Hypertension Neg Hx Kidney Disease Neg Hx Multiple Births Neg Hx Labor Neg Hx Psoriasis Neg Hx Sickle Cell Anemia Neg Hx Stroke Neg Hx Toxemia Neg Hx Tuberculosis Neg Hx Twins Neg Hx Relation Name Status Comments Brother Father Maternal Aunt Maternal Grandfather Maternal Grandmother Maternal Uncle Mother Alive Other Paternal Aunt Paternal Grandfather Paternal Grandmother Paternal Uncle Sister Social History Tobacco Use Types Packs/Day Years Used Date Smoking Tobacco: Never Smokeless Tobacco: Never Tobacco Cessation:Counseling Given: Not Answered Alcohol Use Standard Drinks/Week Comments No 0 (1 standard drink = 0.6 oz pur e alcohol) Comments No Sex and Gender Information Value Date Recorded Sex Assigned at Not on file Legal Sex Female 3:00 PM DENTAL INSURANCE BILLER Gender Identity Not on file Sexual Orientation Not on file Last Filed Vital Signs Vital Sign Reading Time Taken Comments Blood Pressure 120/65 02/17/2022 2:58 PM CDT Pulse 95 02/17/2022 2:58 PM CDT Temperature 37.1 C (98.7 F) 02/17/2022 2:58 PM CDT Respiratory Rate 16 02/17/2022 2:58 PM CDT Oxygen Saturation 100% 02/17/2022 2:58 PM CDT Inhaled Oxygen Concentration - - Weight 81.6 kg (180 lb) 02/17/2022 2:58 PM CDT Height 167.6 cm (5' 6) 02/17/2022 2:58 PM CDT Body Mass Index 29.05 02/17/2022 2:58 PM CDT Plan of Treatment Upcoming Encounters Date Type Department Care Team (Late st Contact Info) Description 08/27/2025 3:00 PM DENTAL INSURANCE BILLER Procedure visit [facility] - General Dermatology [address], [address] [place] [phone] Eddy Guzman MD [address] [facility] [address] [place] [address] Health Maintenance Due Date Last Done Comments LIPID TESTING 1982 MAMMOGRAM 1982 HIV SCREENING 1997 DTAP/TDAP/TD VACCINES (1 - Tdap) 2001 HEPATITIS B VACCINE (1 of 3 - 19+ 3-dose series) 2001 Cervical Cancer Screening 12/14/2003 PAP SMEAR 12/14/2003 HPV VACCINE (1 - 3-dose SCDM series) 2009 PAP with HPV 2012 COVID-19 VACCINE ( season) 2025 08/04/2021, 11/27/2020 INFLUENZA VACCINE (#1) 2025 08/03/2021 ZOSTER VACCINE (1 of 2) 2032 HEPATITIS C SCREENING Completed 02/02/2013 , 02/02/2013, 11/07/2012, Additional history exists HIB VACCINE Aged Out No longer eligi ble based on patient's age to complete this topic MENINGOCOCCAL (Group B) VACCINE SHARED DECISION-MAKING Aged Out No longer eligible based on patient's age to complete this topic MENINGOCOCCAL GROUPS A/C/Y/W VACCINE Aged Out No longer eligible based on patient's age to complete this topic PNEUMOCOCCAL VACCINE Aged Out No long er eligible based on patient's age to complete this topic Procedures Procedure Name Priority Date/Time Associated Diagnosis Comments FL EXC SKIN BENIG <5MM REMAINDR BODY Routine 07/23/2025 4:15 PM DENTAL INSURANCE BILLER Vulvar cysts DERMATOPATHOLOGY Routine 07/23/2025 2:54 PM DENTAL INSURANCE BILLER Vulvar cysts DERMATOPATHOLOGY Routine 06/20/2025 12:0 0 AM CDT Neoplasm of uncertain behavior from Last 3 Months Results * FL EXC SKIN BENIG <5MM REMAINDR BODY (07/23/2025 4:15 PM DENTAL INSURANCE BILLER) Narrative Eddy Guzman MD - 07/23/2025 4:15 PM DENTAL INSURANCE BILLER Eddy Guzman MD 07/26/2025 4:39 PM PROCEDURE: Excision with simple repair. SURGEON: Dr. Guzman TELEVISION SPECIALIST SURGEON: Hafsa Leung MD PRE-OP DIAGNOSIS: EIC vs calcinosis cutis DermPath Accession #: N/[id number] POST-OP DIAGNOSIS: cysts pending histopathologic evaluation Size of lesions range 2-3 mm X 5 lesions. LOCATION: left superior vulva CONSENT: The risks of bleeding, infection, discomfort, incomplete removal, recurrence and scar formation were explained to the patient. All questions were answered. After informed consent, confirmation of site and identity, and appropriate instructions, the patient underwent the procedure as follows: PROCEDURE: The area was prepped with hibiclens and was then infiltrated with 1% lidocaine with epinephrine. The area was then prepped with hibiclens and draped in the usual sterile fashion. With a #15 blade, an incision was made over the cyst extending to the superificial subcutaneous tissue. 5 cysts were dissected out. 1 defect was closed with 1 simple inturrupted 5-0 FAG suture. A sterile pressure dressing was then applied over surgical site with vaseline and telfa. Wound care instructions reviewed verbally and in writing. EBL: < 3 ml COMPLICATIONS: none FINAL WOUND LENGTH: <5mm Eddy Guzman MD PROCEDURE/MINOR SURGICAL ORDE RABLES Final Result * DERMATOPATHOLOGY (Specimen Count = 1) (07/23/2025 2:54 PM DENTAL INSURANCE BILLER) Only the most recent of2 resultswithin the time period is included. Case Report Dermatopathology Report Case: [id number] Authorizing Provider: Eddy Guzman MD Collected: 07/23/2025 02:54 PM Ordering Location: [facility] - Received: 07/23/2025 02:54 PM General Dermatology Pathologist: Shamika Toledo MD Specimen: Skin, left superior vulva 12:09 PM DENTAL INSURANCE BILLER DERMATOPATHOLOGY LABORATORY Final Diagnosis Specimen A. SKIN, left superior vulva: EPIDERMOID CYST (L72.0) 12:09 PM [facility] DERMATOPATHOLOGY LABORATORY at [address]9 DENTAL INSURANCE BILLER Clinical History EIC vs. Calcinosis 12:09 PM [facility] DERMATOPATHOLOGY LABORATORY Gross Description Specimen A: Received is one formalin filled container labeled with the patient's name and designated left superior vulva. The specimen consists of a 2x2x1 mm piece of skin. The specimen is serially sectioned and a industrial relations representative section is submitted in cassette 1. Jar 0. 12:09 PM [facility] DERMATOPATHOLOGY LABORATORY Microscopic Description Specimen A. SKIN, left superior vulva: Within the dermis, there is a space lined by epithelium that resembles normal epidermis and the infundibular portion of the hair follicle. 12:09 PM [facility] DERMATOPATHOLOGY LABORATORY Disclaimer An external and internal positive and negative controls are appropriate for the histochemical, immunohistochemical and immunofluorescence stain(s) in this case (if any), except where stated explicitly. The performance characteristics of the stain(s) cited in this report were developed and its performance characteristic determined by the Dermatopathology Laboratory at [facility], directed by Dr. Lala Shepherd. These tests need not be, and therefore are not, approved by the [place] Food and Drug Administration. The tests are used for clinical purposes. Billing Codes Specimen Charges Stain Charges 66573 1 12:09 PM [facility] DERMATOPATHOLOGY LABORATORY Embedded Images 12:09 PM [facility] DERMATOPATHOLOGY LABORATORY Pathology/Cytolo gy TISSUE SPECIMEN FROM SKIN / Unknown Collection / Unknown 07/23/2025 2:54 PM DENTAL INSURANCE BILLER 07/23/2025 2:54 PM [facility] us Eddy Guzman MD LAB - PATHOLOGY/CYTOLOGY HAFSA ORDONEZ Final Result DERMATOPATHOLOGY LABORATORY [facility] - Department of Dermatology [address] [place] [address], [facility] [phone] from Last 3 Months Insurance [facility] Care Teams Quality Assistant Relationship Specialty Start Date End Date Nilda Choe PA-C [address] [place] [address] PCP - General Nurse Practitioner Primary Care 06/20/25
== END 2025-08-08 12:52 | disposition home or self-care (01) ==
PROVIDERS: PCP Physician Assistant; Visit Provider Physician Assistant
DX: M79.641 Pain in right hand (principal); M79.642 Pain in left hand
CPT/HCPCS: 73120